=== PATIENT | female | born 1950 | race Caucasian/White ===

== ENCOUNTER → 2019-02-11 | Outpatient (CLI) | payer OTHER ==
[~2019-02-11] MED LIST: ZOLPIDEM 5 MG TABLET. PO ONE
--- NOTE | 2019-02-13 10:30 | SLEEP ---
DATE OF STUDY: 02/11/2019 SLEEP STUDY ATTENDING PHYSICIAN: Koffi Zhang MD The patient is 68 years old who weighs 245 pounds with a BMI of 40. The patient underwent sleep study. This was a split night study performed at [facility]. During the night study, the patient spent 441 minutes in bed and slept for 217 minutes with a low sleep efficiency of 49%. Sleep latency was prolonged at 191 minutes with a REM latency of 297 minutes. Sleep architecture showed increased stage 1 and stage 2 sleep, absent slow wave and normal REM sleep. During the initial diagnostic portion of the study, the patient slept for 91 minutes. During that time, there were 6 obstructive apneas, 3 mixed and no central apneas and 111 hypopneas. The patient's apnea-hypopnea index was 80 per hour with a supine index of 61 per hour. REM sleep was not seen during the diagnostic portion. EKG monitoring revealed atrial fibrillation throughout. Mean heart rate was 135 beats per minute. PLMs were seen at an index of 51 per hour, but only 1 per hour caused EEG arousal. Nocturnal oximetry study revealed a mean oxygen saturation of 96% with the lowest of 78%. 50 % of time oxygen saturation remained less than 89%. The patient met the criteria for CPAP initiation. It was started at 5 cm water and titrated up to 12 cm water. At the final pressure, the patient slept for 49 minutes. The patient had REM sleep, but lateral sleep. The patient's AHI was reduced to 0 per hour and oxygen saturations remained above 91%. The patient used a small size full face mask. IMPRESSION: 1. Severe sleep apnea-hypopnea syndrome at an apnea-hypopnea index of 80 per hour. 2. Nocturnal hypoxia secondary to obstructive sleep apnea. 3. Severe periodic limb movements without any significant EEG arousals. 4. Abnormal EKG with atrial fibrillation with a mean heart rate of 135 beats per minute. RECOMMENDATIONS: 1. CPAP at 12 cm water completely eliminated the patient's sleep apnea and should be used on a nightly basis. 2. Follow up in 4-6 weeks to assess compliance with CPAP and to document clinical improvement. 3. PLMs does not need to be treated unless the patient has symptoms of restless legs during the day. 4. The patient should follow up with Cardiology as soon as possible regarding rate control of atrial fibrillation. I have personally talked to Dr Zhang. 5. Caution regarding driving until symptoms of sleep apnea resolve with the use of CPAP. MANUEL MA MD DR: MARIANELA/brian JOB#: [id number] / [id number] NAHED Lou
== END | disposition home or self-care (01) ==
LOC: SLPLAB 18:56
PROVIDERS: ATTEND Internal Medicine Cardiovascular Disease
DX: I48.91 Unspecified atrial fibrillation (principal)
CPT/HCPCS: 95810

== ENCOUNTER 2019-08-19 08:50 | Day surgery (SDC) | payer MEDICARE ==
[~2019-08-19 08:50] MED LIST changes: +ALPR0.5T PO; +ASPI-630 PO; +CHOL200078 PO; +CYAN250012 PO; +EZET1TAB30 PO; +HYDROmorphone 2 MG/ML VIAL IV PRN; +IV RINGERS,LACTATED 1000ML 1,000 ML IV SCH; +LIDOCAINE 1% PF 2 ML VIAL. ID PRN; +METO25TA4 PO; +MORPHINE SULFATE 2 MG/ML VIAL. IV PRN; +MULT-245 PO; +OMEG100021 PO; +ONDANSETRON PF 4 MG/2 ML VIAL. IV PRN; +PROCHLORPERAZINE 10 MG/2 ML VIAL. IV PRN; +SPIR1TAB PO; -ZOLPIDEM 5 MG TABLET. PO ONE; +fentaNYL PF VIAL 100 MCG/2 ML VIAL IV PRN
[2019-08-19 09:56] LABS: BASO # 0.1 x10^3/uL (0.0-0.2); BASO % 1 % (0-3); EOS # 0.1 x10^3/uL (0.0-0.7); EOS % 2 % (0-3); HEMATOCRIT 42.6 % (36.0-47.0); HEMOGLOBIN 14.2 g/dL (12.0-15.5); LYMPH # 2.7 x10^3/uL (1.0-4.8); LYMPH % 36 % (24-48); MEAN CORPUSCULAR HEMOGLOBIN 32 pg (25-35); MEAN CORPUSCULAR HGB CONC 33 g/dL (31-37); MEAN CORPUSCULAR VOLUME 95 fL (79-100); MONO # 0.6 x10^3/uL (0.0-1.1); MONO % 8 % (0-9); NEUT % 53 % (31-73); PLATELET COUNT 134 x10^3/uL (140-400); RED BLOOD COUNT 4.51 x10^6/uL (3.50-5.40); RED CELL DISTRIBUTION WIDTH 14.2 % (11.5-14.5); WHITE BLOOD COUNT 7.5 x10^3/uL (4.0-11.0)
[2019-08-19] MEDS ORDERED: LIDOCAINE 2% PF 5 ML VIAL. ONE (10:00)
[2019-08-19] MEDS ORDERED: DEXAMETHASONE SOD PHOS 4 MG/ML VIAL ONE (10:00)
[2019-08-19] MEDS ORDERED: PROPOFOL 20 ML IV ONE (10:00)
[2019-08-19] MEDS ORDERED: ONDANSETRON PF 4 MG/2 ML VIAL. ONE (10:00)
[2019-08-19] MEDS ORDERED: METHYLERGONOVINE MALEATE 0.2 MG/ML VIAL. IM ONE (10:19)
[2019-08-19] MEDS ORDERED: OXYTOCIN 10 UNIT/ML VIAL. ONE ×2 (10:19→10:20)
[2019-08-19] MEDS ORDERED: SILVER NITRATE STICK TP ONE (10:20)
[2019-08-19] MEDS ORDERED: VASOPRESSIN 20 UNIT/ML VIAL. ONE (10:20)
[2019-08-19] MEDS ORDERED: fentaNYL PF VIAL 100 MCG/2 ML VIAL ONE (10:59)
[2019-08-19] MEDS ORDERED: SEVOFLURANE 31 TO 60 MINUTES. IH ONE (11:22)
[2019-08-19] MEDS ORDERED: PHENYLEPHRINE in 0.9% NACL PF 1 MG/10 ML SYRINGE. IV ONE (11:30)
--- NOTE | 2019-08-19 11:35 | PDOC ---
BRIEF OPERATIVE NOTE Date: Aug 19, 2019 Pre-Op Diagnosis PMB, endometrial thickening on sonogram Post-Op Diagnosis same but scant tissue Procedure Performed hysteroscopy D&C with osei clear fluid collection system Surgeon Dr. Morena Lim Anesthesiologist Dr. Chapman Anesthesia Type: General Blood Loss <10cc IV Fluid see anesthesia note Urine Output straight cath prior Specimens Obtained endometrial currettings Findings sounded to 8cm normal uterus scant tissue no submucosal fibroids or large polyps seen Complications none Operative Note [id number] MORENA LIM MD Aug 19, 2019 11:35
[2019-08-19] MEDS ORDERED: MAG HYDROX/ALUMINUM HYD/SIMETH 30 ML ORAL.SUSP PO PRN (11:45)
[2019-08-19] MEDS ORDERED: CALCIUM CARBONATE 500 MG TAB.CHEW PO PRN (11:45)
[2019-08-19] MEDS ORDERED: 0.9 % SODIUM CHLORIDE 10 ML DISP.SYRIN. IV PRN (11:45)
[2019-08-19] MEDS ORDERED: diphenhydrAMINE HCL 25 MG CAPSULE PO PRN (11:45)
[2019-08-19] MEDS ORDERED: diphenhydrAMINE 50 MG/ML VIAL IV PRN (11:45)
[2019-08-19] MEDS ORDERED: NALOXONE 0.4 MG/ML VIAL. IV PRN (11:45)
[2019-08-19] MEDS ORDERED: SIMETHICONE 80 MG TAB.CHEW PO PRN (11:45)
[2019-08-19] MEDS ORDERED: HYDROcodone/APAP 5/325MG 1 TAB TABLET PO PRN (11:45)
[2019-08-19] MEDS ORDERED: HYDR-3164 PO (12:05)
--- NOTE | 2019-08-19 12:12 | OP ---
DATE OF SURGERY: 08/19/2019 PREOPERATIVE DIAGNOSES: Postmenopausal bleeding, endometrial thickening on sonogram. POSTOPERATIVE DIAGNOSES: Postmenopausal bleeding, endometrial thickening on sonogram, but actually scant tissue with uterus that sounded to 8. PROCEDURE: Hysteroscopy, D and C with TruClear fluid collection system. SURGEON: Kerwin Lim MD VEHICLE PAINTER: OR personnel. ANESTHESIOLOGIST: Dr. Chapman. ANESTHESIA: General. ESTIMATED BLOOD LOSS: Less than 10 mL. URINE OUTPUT: She was just straight cathed prior to procedure. FLUIDS: Please see anesthesia notes. SPECIMEN OBTAINED: Endometrial curettings. FINDINGS: She actually had a small normal uterus, some scant tissue, but both tubal ostia were clearly seen. She sounded to 8 cm and no significant tissue, polyps or fibroids, just some scant tissue. COMPLICATIONS: None. DESCRIPTION OF PROCEDURE: This patient was taken to the operating room where general anesthesia was placed. The patient was placed in dorsal lithotomy position in Thomas stirrups. The patient's vagina was prepped and draped in the normal sterile fashion and a straight cath urine was done prior to my arrival. Upon my arrival, a timeout was performed. Once everyone agreed, a weighted speculum was placed in the patient's vagina. A single-tooth tenaculum was used to grasp the anterior lip of the cervix. The Hegar dilators were used to dilate up to admit the 5-6 scope up to 11-12. She was sounded to 8 cm. The scope had been primed, was placed in with the above findings. The operative channel of the scope was used. The TruClear tissue blade was window locked and a D and C was performed, a direct visual D and C. Again, there was scant tissue, but I did go all the way around and get what I could see and just go down the edges to make sure we had tissue for pathology. Again, normal uterine cavity. Both tubal ostia were seen. Scant tissue was obtained. Once that was done, the procedure was ended. It was removed. The tenaculum was removed. There was no active bleeding and the procedure was ended. She is currently being awakened from anesthesia, but anesthesia said she tolerated the procedure well and is going to be brought to recovery room in stable condition. KERWIN LIM MD DR: COLT/brian JOB#: [id number] / [id number]
[2019-08-19 12:20] VITALS: BP 131/77
--- NOTE | 2019-08-20 18:06 | PATHOLOGY ---
[facility] Accession Number: [id number] . 01 Material submitted: . endometrium - ENDOMETRIAL CURETTINGS . 01 Clinical history: . Menorrhagia . 02 Diagnosis: Endometrial curettings: - Disordered weakly proliferative endometrium and endometrial polyp. (JPM:maría; 08/20/2019) S 08/20/2019 1518 Local . 02 Comment: Sections of the endometrial curettings reveal segments of focally disordered weakly proliferative endometrium and endometrial polyp. There is no atypia or evidence of malignancy. The case is also examined by Dr. Quiñones, who has a specialty interest in [place] [facility] pathology. He concurs with the diagnosis. (JPM:maría; 08/20/2019) . 02 Electronically signed: . Zuhair Powell MD, Pathologist NPI- [id number] . 01 Gross description: . Received in formalin labeled "Mel Conde, endometrial curettings" are multiple fragments of pink-phan tissue measuring 1.2 x 0.9 x 0.2 cm in aggregate which are entirely submitted in A1..(SDY; 08/19/2019) SYU/SYU 08/19/2019 1629 Local . 02 Pathologist provided ICD-10: N85.9, N84.0 . 02 CPT . 087330 Specimen Comment: A courtesy copy of this report has been sent to [phone] Specimen Comment: Report sent to Dr. Milligan Performed at: 01 [facility] [address], [place] [id number] MD Kwesi Silva MD Phone: [phone] Performed at: 02 [facility] [address], [place] [id number] MD Zuhair Powell MD Phone: [phone]
== END 2019-08-19 12:40 | disposition home or self-care (01) ==
LOC: SURG 08:50
PROVIDERS: ATTEND Obstetrics & Gynecology
DX: N95.0 Postmenopausal bleeding (principal); N84.0 Polyp of corpus uteri; E78.00 Pure hypercholesterolemia, unspecified; I25.2 Old myocardial infarction; I48.91 Unspecified atrial fibrillation; I11.9 Hypertensive heart disease without heart failure; I43 Cardiomyopathy in diseases classified elsewhere; G47.30 Sleep apnea, unspecified; F41.9 Anxiety disorder, unspecified; E66.01 Morbid (severe) obesity due to excess calories; Z68.42 Body mass index [BMI] 45.0-49.9, adult; Z87.891 Personal history of nicotine dependence; Z98.890 Other specified postprocedural states; Z86.010 Personal history of colon polyps
CPT/HCPCS: 36415; 58558; 85025; A7015; J1100; J2001; J2370; J2405; J2704; J3010; J2210; J2590; J3490

== ENCOUNTER → 2019-10-17 | Outpatient (CLI) | payer MEDICARE ==
[~2019-10-17] MED LIST changes: +HYDR-3164 PO; -HYDROmorphone 2 MG/ML VIAL IV PRN; -IV RINGERS,LACTATED 1000ML 1,000 ML IV SCH; -LIDOCAINE 1% PF 2 ML VIAL. ID PRN; -MORPHINE SULFATE 2 MG/ML VIAL. IV PRN; -ONDANSETRON PF 4 MG/2 ML VIAL. IV PRN; -PROCHLORPERAZINE 10 MG/2 ML VIAL. IV PRN; -fentaNYL PF VIAL 100 MCG/2 ML VIAL IV PRN
--- NOTE | 2019-10-18 11:02 | NUR ---
IP:Pt is COVID negative.
== END | disposition home or self-care (01) ==
LOC: LAB 11:12
PROVIDERS: ATTEND Dentist Oral and Maxillofacial Surgery
DX: Z01.812 Encounter for preprocedural laboratory examination (principal); Z11.59 Encounter for screening for other viral diseases; K02.63 Dental caries on smooth surface penetrating into pulp
CPT/HCPCS: 36415; 87635

== ENCOUNTER 2019-10-22 09:02 | Day surgery (SDC) | payer MEDICARE ==
[~2019-10-22] VITALS: Ht 167.6 cm; Wt 108.0 kg
[~2019-10-22 09:02] MED LIST changes: +BACITRACIN 50,000 UNIT in IV NORMAL SALINE 500ML BAG 500 ML IRR ONE; +BUPIVACAINE-EPI 0.5%-1:200000 MPF 30 ML VIAL. ONE; +CHLORHEXIDINE 0.12% 15 ML MOUTHWASH. ONE; +GELATIN SPONGE SIZE 100. ONE; +HYDROmorphone 2 MG/ML VIAL IV PRN; +IV RINGERS,LACTATED 1000ML 1,000 ML IV SCH; +LIDOCAINE 1% PF 2 ML VIAL. ID PRN; +MORPHINE SULFATE 2 MG/ML VIAL. IV PRN; +ONDANSETRON PF 4 MG/2 ML VIAL. IV PRN; +PROCHLORPERAZINE 10 MG/2 ML VIAL. IV PRN; +fentaNYL PF VIAL 100 MCG/2 ML VIAL IV PRN
[2019-10-22] MEDS ORDERED: SEVOFLURANE > 120 MINUTES. IH ONE (09:49)
[2019-10-22] MEDS ORDERED: ONDANSETRON PF 4 MG/2 ML VIAL. ONE (09:50)
[2019-10-22] MEDS ORDERED: fentaNYL PF VIAL 100 MCG/2 ML VIAL ONE (09:50)
[2019-10-22] MEDS ORDERED: LIDOCAINE 2% PF 5 ML VIAL. ONE (09:50)
[2019-10-22] MEDS ORDERED: PROPOFOL 10 MG/ML (20ML) VIAL. IV ONE (09:50)
[2019-10-22] MEDS ORDERED: ROCURONIUM 50 MG/5 ML VIAL. ONE (09:50)
[2019-10-22] MEDS ORDERED: DEXAMETHASONE SOD PHOS 4 MG/ML VIAL ONE (09:50)
[2019-10-22] MEDS ORDERED: GLYCOPYRROLATE 1 MG/5 ML VIAL. ONE (09:50)
[2019-10-22] MEDS ORDERED: NEOSTIGMINE METHYLSULFATE 5 MG/5 ML SYRINGE. ONE (09:50)
[2019-10-22] MEDS ORDERED: MIDAZOLAM HCL/PF 2 MG/2 ML VIAL. ONE (09:53)
[2019-10-22] MEDS ORDERED: PHENYLEPHRINE in 0.9% NACL PF 1 MG/10 ML SYRINGE. IV ONE (10:16)
[2019-10-22] MEDS ORDERED: ePHEDrine PF IN SALINE 50 MG/10 ML SYRINGE. IV ONE (10:57)
--- NOTE | 2019-10-22 11:17 | PDOC4 ---
OPERATIVE NOTE Date: Date: October 22, 2019 Pre-Op Diagnosis: COPD AFIB carious non restorable teeth # 21,22,23,24,25,26,27,28,29,30 Post-Op Diagnosis: COPD AFIB carious non restorable teeth # 21,22,23,24,25,26,27,28,29,30 Procedure Performed: surgical removal of carious non restorable teeth # 21,22,23,24,25,26,27,28,29,30 Surgeon: mic Anesthesia Type: jaeliazar Blood Loss: 10 Specimans Obtained: teeth disposed of in OR Findings: see dictation Complications: none Operative Note: see dictation COPD AFIB carious non restorable teeth # 21,22,23,24,25,26,27,28,29,30 WAQAR MARK DMD October 22, 2019 11:17
[2019-10-22] MEDS ORDERED: METOPROLOL TARTRATE 5 MG/5 ML VIAL. IVP ONE (12:15)
[2019-10-22 12:29] VITALS: BP 138/82
--- NOTE | 2019-10-22 13:26 | OP ---
DATE OF SURGERY: 10/22/2019 OPERATING SERVICE: elderly sitter. ATTENDING PHYSICIAN: Justus Mark DMD PREOPERATIVE DIAGNOSES: 1. Chronic obstructive pulmonary disease. 2. Atrial fibrillation. 3. Caries, nonrestorable teeth including teeth numbers 21, 22, 23, 24, 25, 26, 27, 28, 29, 30. POSTOPERATIVE DIAGNOSES. 1. Chronic obstructive pulmonary disease. 2. Atrial fibrillation. 3. Caries, nonrestorable teeth including teeth numbers 21, 22, 23, 24, 25, 26, 27, 28, 29, 30. PROCEDURES PERFORMED: Surgical removal of teeth numbers 21, 22, 23, 24, 25, 26, 27, 28, 29, 30. BRIEF HISTORY: The patient is a 69-year-old female referred to our clinic by Dr. Storm for removal of all remaining teeth, alveoloplasty and preprosthetic surgery. Given her multiple comorbidities and reduced cardiac and pulmonary capacity, we were consulted her diamond sorter who requested that this procedure be done in the operative setting as he was not sure that she was safe or able to be managed safely in outpatient setting in our clinic or under local anesthesia. We did review the risks, alternatives, and benefits with the patient and full history and physical was taken in our clinic. Consents and permits were obtained for procedure and the patient was then transferred down to OR at [facility]. ESTIMATED BLOOD LOSS: Approximately 10 mL. DRAINS PLACED: None. SPECIMEN SENT: None. COMPLICATIONS: None noted at the time of surgery. OPERATIVE DESCRIPTION: After the history and physical was updated in the preoperative holding area, the patient was transported by the Anesthesia Service to the operating suite, placed in the supine position. Pressure pads were placed and checked. A timeout was initiated. All perioperative staff was in agreeance. Surgery began with placement of a moistened throat pack into the oropharynx area and local anesthesia in the form of 20 mL of 0.5% Marcaine, 1:200,000 epinephrine was administered into the surgical areas. An additional 10 mL for a total of 30 mL of 0.5% Marcaine, 1:200,000 epinephrine was administered to the patient. Surgery began with placement of a bite block and a 15 blade and a full thickness mucoperiosteal flap was reflected buccally from teeth numbers 21, 22, 23, 24, 25, 26, 27, 28, 29 and 30. The teeth were luxated, elevated and extracted without complication. A formal alveoloplasty was performed with rongeurs and bone file to reduce all bony undercuts and smooth dental alveolar ridges. Sites were then curetted, lavaged and suctioned with copious normal sterile saline. Sites were then packed with Gelfoam and oversewn with 3-0 chromic gut sutures in a running locked fashion on both left and right quadrants. The oral cavity was then lavaged and suctioned. The moistened throat pack was removed. An OG was passed and the stomach was decompressed. The patient was then returned to the care of Anesthesia, where she was awakened and extubated without complication and transported to the PACU in stable condition. JUSTUS MARK DMD DR: Micky JOB#: [id number] / [id number]
== END 2019-10-22 13:40 | disposition home or self-care (01) ==
LOC: SURG 09:02
PROVIDERS: ATTEND Dentist Oral and Maxillofacial Surgery
DX: K02.9 Dental caries, unspecified (principal); J44.9 Chronic obstructive pulmonary disease, unspecified; I48.91 Unspecified atrial fibrillation; I10 Essential (primary) hypertension; E78.00 Pure hypercholesterolemia, unspecified; I25.2 Old myocardial infarction; G47.33 Obstructive sleep apnea (adult) (pediatric); F41.9 Anxiety disorder, unspecified; E66.9 Obesity, unspecified; Z68.38 Body mass index [BMI] 38.0-38.9, adult; Z87.891 Personal history of nicotine dependence; Z86.010 Personal history of colon polyps
CPT/HCPCS: 41874; A7015; J0696; J1100; J2250; J2370; J2405; J2704; J2710; J3010; J3490; J7040; J7120